=== PATIENT | male | born 1995 | race Caucasian/White ===

== ENCOUNTER 2017-03-20 12:49 | Emergency (ER) | payer BC, OTHER ==
[~2017-03-20] VITALS: Ht 185.4 cm; Wt 80.0 kg
[2017-03-20 12:52] VITALS: BP 132/87
== END 2017-03-20 15:45 | disposition home or self-care (01) ==
LOC: ED 15:40
DX: S93.491A Sprain of other ligament of right ankle, initial encounter (principal); G89.11 Acute pain due to trauma; X58.XXXA Exposure to other specified factors, initial encounter; Y93.89 Activity, other specified; Y92.89 Other specified places as the place of occurrence of the external cause; Y99.8 Other external cause status
CPT/HCPCS: 99284